=== PATIENT | male | born 1980 | race Caucasian/White ===

== ENCOUNTER 2023-11-02 09:13 | Emergency (ER) | payer OTHER ==
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
[2023-11-02] MEDS: KETOROLAC 15 MG/ML 1 ML VIAL IVP STA (09:39)
[2023-11-02] MEDS: SODIUM CHLORIDE 0.9% 1,000 ML IV STA (09:39)
[2023-11-02] MEDS: ACETAMINOPHEN TAB 500 MG TAB PO STA (09:40)
[2023-11-02] MEDS: LIDOCAINE 4% PATCH TOPICAL ONE (09:40)
[2023-11-02 10:02] LABS: Basophils % (A) 0 %; Eosinophils # (A) 0.1 k/uL (0-0.7); Eosinophils % (A) 1 %; HCT 41.4 % (39.0-53.0); HGB 13.7 gm/dL (13.0-17.5); Lymphocytes # (A) 0.8 k/uL (1.0-4.8); Lymphocytes % (A) 7 %; MCH 30.9 pg (25.0-35.0); MCV 93.6 fL (80.0-100.0); Mean Platelet Volume 7.1; Monocytes # (A) 0.9 k/uL (0-1.0); Monocytes % (A) 8 %; Neutrophils # (A) 9.5 k/uL (1.3-7.7); Neutrophils % (A) 84 %; Platelet Count 305 k/uL (150-450); RBC 4.42 m/uL (4.30-5.90); RDW 12.5 % (11.5-15.5); WBC 11.3 k/uL (3.8-10.6)
--- NOTE | 2023-11-02 10:02 | XR ---
EXAMINATION TYPE: XR chest 2V DATE OF EXAM: 11/02/2023 COMPARISON: NONE HISTORY: Chest pain TECHNIQUE: Frontal and lateral views of the chest are obtained. FINDINGS: Basilar increased density may reflect developing and pneumonia and/or associated atelectasis. Correla te clinically and progress studies recommended. No evidence for pneumothorax. No pleural effusion. The cardiac silhouette size is within normal limits. The osseous structures are grossly intact. IMPRESSION: 1. Basilar increased density may reflect developing and pneumonia and/or associated atelectasis. Cor relate clinically and progress studies recommended.
[2023-11-02 10:05] LABS: INR 0.9 (<1.2); Partial Thromboplastin Time 26.8 sec (22.0-30.0); Prothrombin Time 10.3 sec (10.0-12.5)
[2023-11-02] MEDS: ORPHENADRINE 30 MG/ML 2 ML VIAL IVP STA (10:13)
[2023-11-02] MEDS: BENZONATATE 100 MG CAP PO STA (10:13)
[2023-11-02 10:16] LABS: ALT 15 U/L (4-49); AST 19 U/L (17-59); African American GFR (CKD) >90 (>60 ml/min/1.73 sqM); Albumin 3.9 g/dL (3.5-5.0); Alkaline Phosphatase 98 U/L (38-126); Anion Gap 5 mmol/L; Blood Urea Nitrogen 18 mg/dL (9-20); Calcium 9.5 mg/dL (8.4-10.2); Carbon Dioxide 25 mmol/L (22-30); Chloride 107 mmol/L (98-107); Glucose 113 mg/dL (74-99); Magnesium 2.1 mg/dL (1.6-2.3); Non-African American GFR(CKD) >90 (>60 ml/min/1.73 sqM); Potassium 4.2 mmol/L (3.5-5.1); Sodium 137 mmol/L (137-145); Total Bilirubin 0.8 mg/dL (0.2-1.3); Total Protein 6.5 g/dL (6.3-8.2)
--- NOTE | 2023-11-02 11:03 | US ---
EXAMINATION TYPE: US gallbladder DATE OF EXAM: 11/02/2023 COMPARISON: NONE CLINICAL INDICATION: Male, 43 years old with history of RUQ pain; Pain TECHNIQUE: Multiple sonographic images of the right upper quadrant are obtained. FINDINGS: EXAM MEASUREMENTS: Liver Length: 15.3 cm Gallbladder Wall: .3 cm CBD: .4 cm Right Kidney: 9.2 x 4.8 x 4.5 cm BLENDING SUPERVISOR NOTES: Pancreas: Obscured by bowel gas Liver: Increased attenuation Gallbladder: Contracted no stones seen Evidence for sonographic Honeycutt's sign: no CBD: wnl Right Kidney: No hydronephrosis or masses seen IMPRESSION: Limited study given the contracted state of the gallbladder. No obvious cholelithiasis.
[2023-11-02] MEDS: cefTRIAXone IN SWFI 1,000 MG/10 ML SYRINGE IVP STA (11:37)
[2023-11-02] MEDS: AZITHROMYCIN 500 MG TAB PO STA (11:37)
[2023-11-02] MEDS: DEXAMETHASONE SOD PHOSPHATE 10 MG/ML 1 ML VIAL IVP STA (11:41)
[2023-11-02 12:28] VITALS: BP 110/74; PULSE 83; RESP 18
[2023-11-02 12:29] VITALS: TEMP 98.4
== END 2023-11-02 11:46 | disposition home or self-care (01) ==
LOC: EC 09:13 → SUPCPDRO 09:13 → EC 11:46
DX: J18.9 Pneumonia, unspecified organism (principal); F17.200 Nicotine dependence, unspecified, uncomplicated; Z91.030 Bee allergy status; Z88.8 Allergy status to other drugs, medicaments and biological substances
CPT/HCPCS: 99285; 96374; 96375 ×3; 96361; 36415; 93005; 85379; 80053; 83605; 83735; 84484; 85025; 85610; 85730; 71046; 76705; 99406; J1100; J2360; J0696; J1885

== ENCOUNTER 2024-10-16 13:20 | Inpatient (IN) | payer MEDICAID, OTHER ==
[2024-10-16] MEDS ORDERED: LORazepam 1 MG TAB PO PRN (13:30)
[2024-10-16] MEDS ORDERED: MAGNESIUM HYDROXIDE 2,400 MG/30 ML CUP PO PRN (13:30)
[2024-10-16] MEDS ORDERED: MAG HYDROX/AL HYDROX/SIMETH 355 ML BOTTLE PO PRN (13:30)
[2024-10-16] MEDS ORDERED: LORazepam 2 MG/ML INJ IM PRN (13:32)
[2024-10-16] MEDS ORDERED: HALOPERIDOL LACTATE 5 MG/ML 1 ML VIAL IM PRN (13:32)
[2024-10-16] MEDS ORDERED: haloperidoL 5 MG TAB PO PRN (13:32)
[2024-10-16] MEDS: QUEtiapine 100 MG TAB PO SCH (20:51)
[2024-10-16] MEDS: LORazepam 1 MG TAB PO PRN (20:52)
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
[2024-10-16 22:12] LABS: Basophils # (A) 0.02 10*3/uL (0.00-0.10); Basophils % (A) 0.4 %; Eosinophils # (A) 0.18 10*3/uL (0.04-0.35); Eosinophils % (A) 3.3 %; HCT 39.8 % (39.6-50.0); HGB 13.2 g/dL (13.0-17.0); Lymphocytes # (A) 1.33 10*3/uL (0.90-5.00); Lymphocytes % (A) 24.1 %; MCHC 33.2 g/dL (32.0-37.0); MCV 93.4 fL (80.0-97.0); Mean Platelet Volume 9.6 fL (9.5-12.2); Monocytes # (A) 0.39 10*3/uL (0.20-1.00); Monocytes % (A) 7.1 %; Neutrophils # (A) 3.58 10*3/uL (1.80-7.70); Neutrophils % (A) 64.9 %; Platelet Count 253 10*3/uL (140-440); RBC 4.26 10*6/uL (4.40-5.60); RDW 12.7 % (11.5-14.5); WBC 5.51 10*3/uL (4.50-10.00)
[2024-10-16 22:26] LABS: African American GFR (CKD) >90 (>60 ml/min/1.73 sqM); Anion Gap 8 mmol/L; Blood Urea Nitrogen 17 mg/dL (9-20); Carbon Dioxide 24 mmol/L (22-30); Chloride 103 mmol/L (98-107); Glucose 132 mg/dL (74-99); Non-African American GFR(CKD) >90 (>60 ml/min/1.73 sqM); Potassium 3.9 mmol/L (3.5-5.1); Sodium 135 mmol/L (137-145)
[2024-10-17] MEDS: FOLIC ACID 1 MG TAB PO SCH (09:48)
[2024-10-17] MEDS: MULTIVITAMINS, THERA 1 EACH TAB PO SCH (09:49)
[2024-10-17] MEDS: NICOTINE 14MG/24HR PATCH TRANSDERM SCH (09:49)
[2024-10-17] MEDS: THIAMINE 100 MG TAB PO SCH (09:49)
[2024-10-17 10:29] LABS: Chol/HDL Ratio 3.66 Ratio; LDL Cholesterol,Calculated 87.5 mg/dL (0.0-131.0)
[2024-10-17] MEDS: LORazepam 1 MG TAB PO PRN (12:14)
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
[2024-10-17] MEDS: ARIPiprazole 5 MG TAB PO SCH (15:36)
[2024-10-17] MEDS: chlordiazePOXIDE 25 MG CAP PO SCH (16:31)
[2024-10-17] MEDS: MIRTAZAPINE 15 MG TAB PO SCH (21:06)
[2024-10-18] MEDS: IBUPROFEN 600 MG TAB PO PRN (08:27)
[2024-10-18] MEDS: NICOTINE GUM (POLACRILEX) 2 MG GUM BUCCAL PRN (08:27)
--- NOTE | 2024-10-18 11:49 | P.PN ---
Progress Note - Text Progress Note Date: 10/18/24 Interval History: Patient was seen today for psychiatric follow-up. Patient was laying in his b ed, continues to be disheveled in appearance. States that he is still feeling "the same". Claims that he is still having depression and anxiety, claims that he is still also having suicidal thoughts no specific plan. States that he did not sleep well last night, has been tolerating medications fairly well has been mainly isolating in his room today. He did not report any other concerns at this time. At this time he is denying any auditory or visual hallucinations denying any homicidal ideations intent or plan. Anxiety still having minor withdrawal symptoms at this time. MENTAL STATUS EXAM: General Appearance: Patient appears to be disheveled appearance, balding, stated age is alert, directable, and attempts to cooperate. Patient appears to have poor hygiene and grooming. Behavior: Patient is seated without any agitated behavior. Attempts to cooperate Speech: Patient's speech is fluent and nonpressured. Fairly concrete, improving mildly Mood/Affect: Patient reports their mood is depressed and anxious, affect is congruent and constricted. Suicidality/Homicidality: Patient denies having any homicidal ideation intent or plan. Admits to suicidal thoughts, no specific plan or intent Perceptions: Patient denies any visual hallucinations and denies any auditory hallucinations Though content/process: There is no evidence of any delusional thought content and thought process is linear and goal-directed. Memory and concentration: AOX3, grossly intact for the purposes of this session Judgment and insight: Poor, improving mildly IMPRESSIONS: Bipolar disorder, current episode depressed History of PTSD Alcohol use disorder severe dependence Cocaine abuse Cannabis use disorder Nicotine dependence PLAN: -Patient is admitted under voluntary status to [facility] for stabilization of psychiatric symptoms and safety. Patient has signed adult voluntary form and has signed medication consent and is placed in patient's chart. -Medications : Increase Abilify 7.5 mg daily for mood stabilization, increase Remeron 30 mg nightly for sleep/mood, decrease/taper Librium, down to 20 mg 3 times daily for alcohol withdrawal, plan to taper down. added cymbalta 30 mg qhs for anxiety/mood. -Ativan and Haldol PRN for agitation/aggression -thiamine, MVM for etoh use -CIWA protocol with Ativan PRN for ETOH withdrawal. -NRT -nicotine patch -SW on board for discharge planning. Encourage patient to participate in groups to work on coping skills.
[2024-10-18] MEDS: DULoxetine HCL 30 MG CAPSULE.DR PO SCH (21:26)
[2024-10-18] MEDS: MIRTAZAPINE 15 MG TAB PO SCH (21:26)
[2024-10-19] MEDS: ARIPiprazole 5 MG TAB PO SCH (08:34)
--- NOTE | 2024-10-19 11:59 | P.PN ---
Progress Note - Text Progress Note Date: 10/19/24 Dictation was produced using [employer] dictation software. Please excuse any grammatical, word or spelling errors. Interval history: Patient was seen in his room and was directable and agreeable to speak with the publicity writer for psychiatric follow-up. The patient states that he is feeling about the same today, reported that his mood is " the same," admitted to moderate to high depression and anxiety which he rated both at 9 per 10. Reported that he still having suicidal thoughts at time and denied having any intention or plan while in the hospital however reported if he is outside he may walk into traffic. He denied any homicidal thoughts or behavior. He admitted to interrupted sleep last night and reported that he was tossing and turning. Admitted to good appetite. Denied any current AVH. States that his withdrawal symptoms has been improving. Reported that he has been compliant with his medication, denied any current side effects. Denied any muscle stiffness, rigidity, abnormal movement, or drooling. Patient was encouraged to attend groups and participate in milieu. Mental status exam: General Appearance: Patient appears to be disheveled appearance, balding, stated age is alert, directable, and attempts to cooperate. Patient appears to have fair hygiene and grooming, wheelchair at bedside. Behavior: Patient is laying in bed without any agitated behavior. Attempts to cooperate Speech: Patient's speech is fluent and nonpressured. Fairly concrete, improving mildly Mood/Affect: Patient reports their mood is " the same", depressed and anxious, affect is congruent and constricted. Suicidality/Homicidality: Patient denies having any homicidal ideation intent or plan. Admits to suicidal thoughts, no specific plan or intent Perceptions: Patient denies any visual hallucinations and denies any auditory hallucinations Though content/process: There is no evidence of any delusional thought content and thought process is linear and goal-directed. Memory and concentration: AOX3, grossly intact for the purposes of this session Judgment and insight: Poor, improving mildly IMPRESSIONS: Bipolar disorder, current episode depressed History of PTSD Alcohol use disorder severe dependence Cocaine abuse Cannabis use disorder Nicotine dependence Assessment/Plan: Continue with current diagnosis. Patient continues to meet criteria for inpatient psychiatric admission for symptom stabilization and safety. Patient will be maintained on current psychotropic medication regimen which include Abilify 7.5 mg p.o. daily, Remeron 30 mg p.o. at bedtime which was increased on Monday, Cymbalta 30 mg p.o. at bedtime which was started yesterday, and Librium for alcohol withdrawal with a plan to taper down. Monitor for medication compliance and for any psychotropic medication side effects. Will continue to monitor ongoing response to treatment. Encouraged participation in milieu.
--- NOTE | 2024-10-20 11:42 | P.PN ---
Progress Note - Text Progress Note Date: 10/20/24 Dictation was produced using [employer] dictation software. Please excuse any grammatical, word or spelling errors. Interval history: Patient was seen in his room, laying in bed and was directable and agreeable to speak with the real estate underwriter for psychiatric follow-up. The patient states that he is feeling " not that good" today, reported that he still feeling depressed, reported that he has been struggling with depression for quite some time, reported depression and anxiety to be at the moderate to high side, he rated both at 7 per 10. He admitted to having suicidal thoughts, denied any intention or plan while in the hospital however reported that he may consider walking into traffic or overdose if he is outside of the hospital. Denied any homicidal ideation. He denied any auditory or visual hallucination, paranoia or delusion. Admitted to having intermittent appetite and he has been forcing himself to eat. Admitted to good sleep. States that he is feeling safe while in the unit. Getting along with everyone. Reported that he has been taking his medication, denied any side effects, denied any muscle stiffness, rigidity, abnormal movement, or drooling. He states that he was having diarrhea yesterday, 34 times, patient was asked to let staff know if it is increasing in intensity. Patient was encouraged to take care of his hygiene and to shower, he reported that he showered yesterday. Patient was encouraged to attend groups and participate in milieu. Patient reported that he has good family support from his mother, sister and girlfriend, reported that he has been seeing a therapist. Patient was educated on the depression process and the effect of substance on depression, he seemed to understand. Mental status exam: General Appearance: Patient appears to be disheveled appearance, balding, stated age is alert, directable, and attempts to cooperate. Patient appears to have fair hygiene and grooming, wheelchair at bedside. Behavior: Patient is laying in bed without any agitated behavior. Attempts to cooperate Speech: Patient's speech is fluent and nonpressured. Fairly concrete, improving mildly Mood/Affect: Patient reports their mood is " not that good", depressed and anxious, affect is congruent and constricted. Suicidality/Homicidality: Patient denies having any homicidal ideation intent or plan. Admits to suicidal thoughts, no specific plan or intent while in the hospital Perceptions: Patient denies any visual hallucinations and denies any auditory hallucinations Though content/process: There is no evidence of any delusional thought content and thought process is linear and goal-directed. Memory and concentration: AOX3, grossly intact for the purposes of this session Judgment and insight: Poor, improving mildly IMPRESSIONS: Bipolar disorder, current episode depressed History of PTSD Alcohol use disorder severe dependence Cocaine abuse Cannabis use disorder Nicotine dependence Assessment/Plan: Continue with current diagnosis. Patient continues to meet criteria for inpatient psychiatric admission for symptom stabilization and safety. Patient will be maintained on current psychotropic medication regimen which include Abilify 7.5 mg p.o. daily, Remeron 30 mg p.o. at bedtime which was increased on Monday, Cymbalta 30 mg p.o. at bedtime which was started Monday, and Librium for alcohol withdrawal with a plan to taper down. Monitor for medication compliance and for any psychotropic medication side effects. Will continue to monitor ongoing response to treatment. Supportive/motivational psychotherapy was provided, encouraged participation in milieu.
--- NOTE | 2024-10-21 10:28 | P.PN ---
Progress Note - Text Progress Note Date: 10/21/24 Interval History: Patient was seen today for psychiatric follow-up. Patient was laying in his b ed. Patient claims that he is still feeling fairly depressed, claims that he did not have a good weekend. States that he is still having thoughts of "ending my life" however has no specific plan in the hospital. He claims that his anxiety is still a bit elevated. He denies any issues with his medications at this time, we spoke about adjusting them. He claims that his withdrawal symptoms have been improving, continues to believe he does not need rehab. Claims that he slept fairly last night. Has been eating, mainly isolating in his room not going to groups. At this time he is denying any auditory or visual hallucinations denying any homicidal ideations intent or plan. MENTAL STATUS EXAM: General Appearance: Patient appears to be disheveled appearance, balding, stated age is alert, directable, and attempts to cooperate. Patient appears to have improving hygiene and grooming. Behavior: Patient is seated without any agitated behavior. Attempts to cooperate Speech: Patient's speech is fluent and nonpressured. Fairly concrete, improving mildly Mood/Affect: Patient reports their mood is depressed and anxious, affect is congruent and constricted. Improving mildly Suicidality/Homicidality: Patient denies having any homicidal ideation intent or plan. Admits to suicidal thoughts, no specific plan or intent Perceptions: Patient denies any visual hallucinations and denies any auditory hallucinations Though content/process: There is no evidence of any delusional thought content and thought process is linear and goal-directed. Memory and concentration: AOX3, grossly intact for the purposes of this session Judgment and insight: Poor, improving mildly IMPRESSIONS: Bipolar disorder, current episode depressed History of PTSD Alcohol use disorder severe dependence Cocaine abuse Cannabis use disorder Nicotine dependence PLAN: -Patient is admitted under voluntary status to [facility] for stabilization of psychiatric symptoms and safety. Patient has signed adult voluntary form and has signed medication consent and is placed in patient's chart. -Medications : Increase Abilify 10 mg daily for mood stabilization, Remeron 30 mg nightly for sleep/mood, decrease/taper Librium, down to 10 mg 2 times daily for alcohol withdrawal, plan to taper off tomorrow am. increase cymbalta 30 mg bid for anxiety/mood. -Ativan and Haldol PRN for agitation/aggression -thiamine, MVM for etoh use -CIWA protocol with Ativan PRN for ETOH withdrawal. d/c tomorrow -NRT -nicotine patch -SW on board for discharge planning. Encourage patient to participate in groups to work on coping skills. refusing rehab at this time
[2024-10-21] MEDS: ARIPiprazole 5 MG TAB PO ONE (10:58)
[2024-10-21] MEDS: DULoxetine HCL 30 MG CAPSULE.DR PO SCH (10:58)
[2024-10-22] MEDS: ARIPiprazole 10 MG TAB PO SCH (08:36)
--- NOTE | 2024-10-22 11:50 | P.PN ---
Progress Note - Text Progress Note Date: 10/22/24 Interval History: Patient was seen today for psychiatric follow-up. Patient was laying in his b ed. Patient claims that he is feeling a bit better since yesterday. Claims that he is still dealing with anxiety however. Has been trying to go to some groups and interact with others. States that he feels the medications have been helping a bit so far not reporting any side effects. He was agreeable to have them increased once again. States that he is still having suicidal thoughts on and off during the day, no specific plan. Has been showering and eating well. Claims that he slept fairly last night. At this time he is denying any auditory or visual hallucinations denying any homicidal ideations intent or plan. MENTAL STATUS EXAM: General Appearance: Patient appears to be disheveled appearance, balding, stated age is alert, directable, and attempts to cooperate. Patient appears to have improving hygiene and grooming. Behavior: Patient is seated without any agitated behavior. Attempts to cooperate Speech: Patient's speech is fluent and nonpressured. Fairly concrete, improving mildly Mood/Affect: Patient reports their mood is depressed and anxious, improving mildly, affect is congruent and constricted. Improving mildly Suicidality/Homicidality: Patient denies having any homicidal ideation intent or plan. Admits to suicidal thoughts, no specific plan or intent, improving mildly Perceptions: Patient denies any visual hallucinations and denies any auditory hallucinations Though content/process: There is no evidence of any delusional thought content and thought process is linear and goal-directed. Memory and concentration: AOX3, grossly intact for the purposes of this session Judgment and insight: Poor, improving mildly IMPRESSIONS: Bipolar disorder, current episode depressed History of PTSD Alcohol use disorder severe dependence Cocaine abuse Cannabis use disorder Nicotine dependence PLAN: -Patient is admitted under voluntary status to [facility] for stabilization of psychiatric symptoms and safety. Patient has signed adult voluntary form and has signed medication consent and is placed in patient's chart. -Medications : Abilify 10 mg daily for mood stabilization, Remeron 30 mg nightly for sleep/mood, d/c Librium. increase cymbalta 30 mg daily + 60 mg qhs for anxiety/mood. -Ativan and Haldol PRN for agitation/aggression -thiamine, MVM for etoh use -CIWA protocol with Ativan d/c today -NRT -nicotine patch -SW on board for discharge planning. Encourage patient to participate in groups to work on coping skills. refusing rehab at this time. hopeful for discharge by the end of the week if patient is improving psychiatrically.
[2024-10-22] MEDS: DULoxetine HCL 60 MG CAPSULE.DR PO SCH (20:52)
[2024-10-23] MEDS: DULoxetine HCL 30 MG CAPSULE.DR PO SCH (08:45)
--- NOTE | 2024-10-23 10:54 | P.PN ---
Progress Note - Text Progress Note Date: 10/23/24 Interval History: Patient was seen today for psychiatric follow-up. Patient was laying in his b ed. Patient claims that he feels "about the same" with regards to his mood and anxiety. Claims that he still struggling with depression. Believes that he is still having on and off suicidal thoughts, no specific plan. He does claim that the medications have been helping "just a little bit". He continues to mainly isolate in his room, has been up for meals only going to limited groups. Claims that he slept fairly last night. At this time he is denying any auditory or visual hallucinations denying any homicidal ideations intent or plan. MENTAL STATUS EXAM: General Appearance: Patient appears to be disheveled appearance, balding, stated age is alert, directable, and attempts to cooperate. Patient appears to have improving hygiene and grooming. Behavior: Patient is seated without any agitated behavior. Attempts to cooperate, mainly isolate if Speech: Patient's speech is fluent and nonpressured. Fairly concrete, improving mildly Mood/Affect: Patient reports their mood is depressed and anxious, improving mildly, affect is congruent and constricted. Improving mildly Suicidality/Homicidality: Patient denies having any homicidal ideation intent or plan. Admits to suicidal thoughts, no specific plan or intent, improving mildly Perceptions: Patient denies any visual hallucinations and denies any auditory hallucinations Though content/process: There is no evidence of any delusional thought content and thought process is linear and goal-directed. Fairly concrete Memory and concentration: AOX3, grossly intact for the purposes of this session Judgment and insight: Poor, improving mildly IMPRESSIONS: Bipolar disorder, current episode depressed History of PTSD Alcohol use disorder severe dependence Cocaine abuse Cannabis use disorder Nicotine dependence PLAN: -Patient is admitted under voluntary status to [facility] for stabilization of psychiatric symptoms and safety. Patient has signed adult voluntary form and has signed medication consent and is placed in patient's chart. -Medications : Abilify 10 mg daily for mood stabilization, Remeron 30 mg nightly for sleep/mood, increase cymbalta 60 mg daily + 60 mg qhs for anxiety/mood. -Ativan and Haldol PRN for agitation/aggression -thiamine, MVM for etoh use -NRT -nicotine patch -SW on board for discharge planning. Encourage patient to participate in groups to work on coping skills. refusing rehab at this time. hopeful for discharge by the end of the week if patient is improving psychiatrically.
[2024-10-24] MEDS: DULoxetine HCL 60 MG CAPSULE.DR PO SCH (08:34)
--- NOTE | 2024-10-24 10:27 | P.PN ---
Progress Note - Text Progress Note Date: 10/24/24 Interval History: Patient was seen today for psychiatric follow-up. Patient was laying in his b ed. Patient claims that he is doing a bit better today. Claims that his medications have been helping improve his mood. States that he is still dealing with depression, would like to have his medications increased once again. He states that he was able to sleep better last night. Claims that he did feel anxious this morning due to the disruption in the hallway. States that he feels he is not ready for discharge yet, possibly tomorrow. Claims that he has been attempting to eat more, continues to mainly isolate in his room was encouraged to go to groups today. He was also encouraged to shower today as well. Appears to have mild improvement in his affect today. At this time he is denying any auditory or visual hallucinations denying any homicidal ideations intent or plan and denying any suicidal ideations today. MENTAL STATUS EXAM: General Appearance: Patient appears to be disheveled appearance, balding, stated age is alert, directable, and attempts to cooperate. Patient appears to have improving hygiene and grooming. Behavior: Patient is seated without any agitated behavior. Attempts to cooperate, mainly isolative, improving mildly. Speech: Patient's speech is fluent and nonpressured. Fairly concrete, improving mildly Mood/Affect: Patient reports their mood is improving mildly, affect is congruent and constricted. Improving mildly Suicidality/Homicidality: Patient denies having any homicidal ideation intent or plan. Denies any suicidal thoughts, no specific plan or intent Perceptions: Patient denies any visual hallucinations and denies any auditory hallucinations Though content/process: There is no evidence of any delusional thought content and thought process is linear and goal-directed. Fairly concrete, improving mildly Memory and concentration: AOX3, grossly intact for the purposes of this session Judgment and insight: Poor, improving mildly IMPRESSIONS: Bipolar disorder, current episode depressed History of PTSD Alcohol use disorder severe dependence Cocaine abuse Cannabis use disorder Nicotine dependence PLAN: -Patient is admitted under voluntary status to [facility] for stabilization of psychiatric symptoms and safety. Patient has signed adult voluntary form and has signed medication consent and is placed in patient's chart. -Medications : Abilify 10 mg daily for mood stabilization, increase Remeron 45 mg nightly for sleep/mood, cymbalta 60 mg daily + 60 mg qhs for anxiety/mood. -Ativan and Haldol PRN for agitation/aggression -thiamine, MVM for etoh use -NRT -nicotine patch -SW on board for discharge planning. Encourage patient to participate in groups to work on coping skills. refusing rehab at this time. hopeful for discharge tomorrow back home if patient is improving psychiatrically.
[2024-10-24] MEDS: MIRTAZAPINE 45 MG TABLET PO SCH (20:46)
--- NOTE | 2024-10-25 11:06 | P.PN ---
Progress Note - Text Progress Note Date: 10/25/24 Interval History: Patient was seen today for psychiatric follow-up. Patient was laying in his bed once again. Patient claims that he is not doing well today, claims that he is still feeling depressed and also was endorsing suicidal thoughts. He claims that he had "several ideas" to harm himself if he was discharged today claims that he is not feeling safe. He also is endorsing some anxiety at this time. Denies any issues with his medications. Claims that he did not sleep well last night. Was agreeable to try lithium today. Has not been going to groups mainly isolating in his room. At this time he is denying any auditory or visual hallucinations denying any homicidal ideations intent or plan and denying any suicidal ideations today. MENTAL STATUS EXAM: General Appearance: Patient appears to be disheveled appearance, balding, stated age is alert, directable, and attempts to cooperate. Patient appears to have improving hygiene and grooming. Behavior: Patient is seated without any agitated behavior. Attempts to cooperate, somewhat manipulative. mainly isolative Speech: Patient's speech is fluent and nonpressured. Fairly concrete Mood/Affect: Patient reports their mood is depressed, affect is congruent and constricted. Improving mildly Suicidality/Homicidality: Patient denies having any homicidal ideation intent or plan. admitts to having suicidal thoughts, no specific plan while on the unit or intent Perceptions: Patient denies any visual hallucinations and denies any auditory hallucinations Though content/process: There is no evidence of any delusional thought content and thought process is linear and goal-directed. Fairly concrete Memory and concentration: AOX3, grossly intact for the purposes of this session Judgment and insight: Poor, improving mildly IMPRESSIONS: Bipolar disorder, current episode depressed History of PTSD Alcohol use disorder severe dependence Cocaine abuse Cannabis use disorder Nicotine dependence PLAN: -Patient is admitted under voluntary status to [facility] for stabilization of psychiatric symptoms and safety. Patient has signed adult voluntary form and has signed medication consent and is placed in patient's chart. -Medications : Abilify 10 mg daily for mood stabilization, Remeron 45 mg nightly for sleep/mood, cymbalta 60 mg daily + 60 mg qhs for anxiety/mood. added lithium 150 mg bid for mood stabilization/suicidal thoughts. -Ativan and Haldol PRN for agitation/aggression -thiamine, MVM for etoh use -NRT -nicotine patch -SW on board for discharge planning. Encourage patient to participate in groups to work on coping skills. refusing rehab at this time. hopeful for monday back home if patient is improving psychiatrically.
[2024-10-25] MEDS: ARIPiprazole 5 MG TAB PO ONE (11:28)
[2024-10-25] MEDS: LITHIUM CARBONATE 150 MG CAP PO SCH (11:28)
[2024-10-26] MEDS: ARIPiprazole 15 MG TAB PO SCH (10:24)
--- NOTE | 2024-10-26 12:22 | P.PN ---
Subjective Progress Note Date: 10/26/24 Principal diagnosis: Bipolar I Depressed Patient was seen today for psychiatric follow-up. Patient was laying in his bed. He says that he is to be discharged on Monday and feels that he will do OK. Although he also is endorsing some anxiety at this time. Denies any issues with his medications. Claims that he did sleep well last night. Was agreeable to try lithium today. Has not been going to groups mainly isolating in his room. At this time he is denying any auditory or visual hallucinations denying any homicidal ideations intent or plan and denying any suicidal ideations today. He says that his bowels are somewhat loose. MENTAL STATUS EXAM: General Appearance: Patient appears to be disheveled appearance, balding, stated age is alert, directable, and attempts to cooperate. Patient appears to have adequate hygiene and grooming. Behavior: Patient is seated without any agitated behavior. Attempts to cooperate, mainly isolative Speech: Patient's speech is fluent and nonpressured. Mood/Affect: Patient reports their mood is depressed, affect is congruent and constricted. Suicidality/Homicidality: Patient denies having any homicidal ideation intent or plan. Je suicidal thoughtstoday, no specific plan while on the unit or intent Perceptions: Patient denies any visual hallucinations and denies any auditory hallucinations Though content/process: There is no evidence of any delusional thought content and thought process is linear and goal-directed. Fairly concrete Memory and concentration: AOX3, grossly intact for the purposes of this session Judgment and insight: Poor, improving mildly IMPRESSIONS: Bipolar disorder, current episode depressed History of PTSD Alcohol use disorder severe dependence Cocaine abuse Cannabis use disorder Nicotine dependence PLAN: -Patient is admitted under voluntary status to MHU for stabilization of psyc hiatric symptoms and safety. Patient has signed adult voluntary form and has signed medication consent and is placed in patient's chart. -Medications : Abilify 10 mg daily for mood stabilization, Remeron 45 mg nightly for sleep/mood, cymbalta 60 mg daily + 60 mg qhs for anxiety/mood. added lithium 150 mg bid for mood stabilization/suicidal thoughts. -Ativan and Haldol PRN for agitation/aggression -thiamine, MVM for etoh use -NRT -nicotine patch -SW on board for discharge planning. Encourage patient to participate in groups to work on coping skills. refusing rehab at this time. hopeful for monday back home if patient is improving psychiatrically. Objective - Vital Signs Vital signs: Vital Signs Temp 97.8 F 10/26/24 09:56 Pulse 102 H 10/26/24 09:56 Resp 16 10/26/24 09:56 BP 111/75 10/26/24 09:56 Pulse Ox 95 10/26/24 09:56 FiO2 - Labs CBC & Chem 7: 10/16/24 21:59 10/16/24 21:59
--- NOTE | 2024-10-27 11:55 | P.PN ---
Subjective Progress Note Date: 10/27/24 Principal diagnosis: Bipolar I Depressed Patient was seen today for psychiatric follow-up. Patient was laying in his bed but was willing to talk to me set up on his elbow to look at me and said that his depression is much better on the medicine and that he has learned his lesson and he needs to take it. He says that he is to be discharged on Monday and feels that he will do OK. He says his anxiety is largely cleared. Denies any issues with his medications. Claims that he did not sleep well last night. He has been out of his room more today. At this time he is denying any auditory or visual hallucinations denying any homicidal ideations intent or plan and denying any suicidal ideations today. H MENTAL STATUS EXAM: He was cooperative good eye contact reasonable response times General Appearance: Patient appears to be disheveled appearance, balding, stated age is alert, directable, and attempts to cooperate. Patient appears to have adequate hygiene and grooming. Behavior: Patient is seated without any agitated behavior. Attempts to cooperate, mainly isolative Speech: Patient's speech is fluent and nonpressured. Mood/Affect: Patient reports their mood is depressed, affect is congruent and constricted. Suicidality/Homicidality: Patient denies having any homicidal ideation intent or plan. Je suicidal thoughtstoday, no specific plan while on the unit or intent Perceptions: Patient denies any visual hallucinations and denies any auditory hallucinations Though content/process: There is no evidence of any delusional thought content and thought process is linear and goal-directed. Fairly concrete Memory and concentration: AOX3, grossly intact for the purposes of this session Judgment and insight: Poor, improving mildly IMPRESSIONS: Doing better Bipolar disorder, current episode depressed History of PTSD Alcohol use disorder severe dependence Cocaine abuse Cannabis use disorder Nicotine dependence PLAN: -Patient is admitted under voluntary status to MHU for stabilization of psychiatric symptoms and safety. Patient has signed adult voluntary form and has signed medication consent and is placed in patient's chart. -Medications : Abilify 10 mg daily for mood stabilization, Remeron 45 mg nightly for sleep/mood, cymbalta 60 mg daily + 60 mg qhs for anxiety/mood. added lithium 150 mg bid for mood stabilization/suicidal thoughts. -Ativan and Haldol PRN for agitation/aggression -thiamine, MVM for etoh use -NRT -nicotine patch -SW on board for discharge planning. Encourage patient to participate in groups to work on coping skills. refusing rehab at this time. hopeful for monday back home if patient is improving psychiatrically. Objective - Vital Signs Vital signs: Vital Signs Temp 97.4 F L 10/27/24 09:00 Pulse 111 H 10/27/24 09:00 Resp 16 10/27/24 09:00 BP 115/76 10/27/24 09:00 Pulse Ox 95 10/27/24 09:00 FiO2 - Labs CBC & Chem 7: 10/16/24 21:59 10/16/24 21:59
[2024-10-28 08:55] VITALS: BP 120/77; PULSE 75; RESP 16; TEMP 98.3
--- NOTE | 2024-10-28 11:17 | P.DS ---
Providers Date of admission: 10/16/24 18:48 Expected date of discharge: 10/28/24 Attending physician: Orville Lyman MD Consults: 10/16/24 13:30 Consult Physician Routine Consulting Provider: [facility] Consult Reason/Comments: H&P Do you want consulting provider notified?: Yes Primary care physician: Gene Medina - Discharge Diagnosis(es) (1) Bipolar disorder current episode depressed Current Visit: Yes Status: Acute Priority: High (2) History of posttraumatic stress disorder (PTSD) Current Visit: Yes Status: Acute Priority: Medium (3) Alcohol use disorder, severe, dependence Current Visit: Yes Status: Acute Priority: High (4) Cocaine abuse Current Visit: Yes Status: Acute Priority: High (5) Cannabis use disorder Current Visit: Yes Status: Acute Priority: Medium (6) Nicotine dependence Current Visit: Yes Status: Acute Priority: Low Hospital Course: Admission HPI: Admission note was completed by service writer advisor "Patient is a 44-year-old male, currently lives with his mother in a house, he is he has no kids, collect Social Security disability. Patient presented to the hospital as a transfer from [facility] and as per eps note "Pt is a transfer from [facility]. Pt reported SI with plan to jump into traffic. Pt expressed multiple life stressors, including limited finances. Pt has a hx of suicide attempts. Attempt in 10/2023 by Overdose per charting. Pt denies HI, Hallucinations, or delusions. Polysubstance user, UDS + cocaine. Daily ETOH use, recent increase to a case and a fifth in the last few days per [facility] [employer]. ETOH on arrival was .149. Recent CIWA 6. No hx od WD seizures. VSS, Covid 10/16/24 Negative. No restraints. PRNs for WD symptoms. Pet and cert completed." patient was seen today and agreeable to speak to service writer advisor for evaluation. Patient claims that he has been not feeling doing well lately, claims that he has been off his medication since June. States that he was doing well and believes that he did not need them any longer. He claims that he was feeling depressed mainly, was endorsing suicidal ideations. Claims that this been going on for the past couple of months. He states that he was having thoughts of walking into traffic, claims that he called his mother and then he called 911 on himself. He was a transfer from [facility]. He claims that he is stressed about finances as he is no longer working. Is endorsing anxiety, claims that he has a history of PTSD also history of bipolar disorder, is claiming that he has history of possible manic episodes. Claims that he is still having suicidal thoughts no specific plan, denies any homicidal ideations. At this time patient denies any auditory or visual hallucinations. Patient denies any flight of ideas racing thoughts and increased in goal directed behavior. Patient claims that his sleep is poor appetite is fair. Claims that he is also drinking alcohol regularly about a 24 pack of beer along with some alcohol liquor per day . Claims that he does have a history of severe withdrawals in the past, currently endorsing mild shakes. Patient admits to using marijuana as well and cigarettes daily. Claims that he occasionally uses cocaine." Hospital course: Upon admission to the unit patient was directable and agreeable to commence treatment and signed adult voluntary form. Patient was initially depressed isolative suicidal however with time and treatment patient got along well with other patients on the unit and followed unit protocol. Patient was compliant with the medications and denied any side effects throughout hospital course. Patient was started on Abilify increased to dose of 15 mg daily for mood stabilization, Remeron 45 milligrams nightly for sleep/mood, Cymbalta 60 mg twice daily for anxiety/mood, lithium 150 mg twice daily for mood stabilization/suicidal thoughts. Patient was on CIWA protocol with as needed Ativan for alcohol withdrawal. Patient spoke of his stressors however did not participate much in group/activity therapy and mainly kept to themselves during hospitalization. Patient was also seen by medical team for history and physical exam. Throughout the course of the hospitalization patient gradually improved with regards to mood, anxiety, suicidal thoughts, sleep and returned back to their baseline level of functioning. On the day of discharge patient denied any suicidal or homicidal ideations intent or plan denied any auditory or visual hallucinations. Patient endorsed wanting to live for their health and family. The patient denied any access to guns or weapons. Patient denied any paranoia and did not endorse any delusions. Patient does have a significant history of substance abuse and was counseled on abstaining from all substances including alcohol and marijuana. Patient was offered however declined inpatient substance-abuse rehab. Patient elected to do outpatient substance use treatment program through their outpatient provider. Patient was also counseled on the medications and need for regular compliance and was encouraged to follow-up with their outpatient appointment for mental health and also for primary care. Mental status exam: General Appearance: Patient appears to be balding, using a walker, stated age is alert, pleasant, and cooperative. Patient is in no acute distress and has improved hygiene and grooming Behavior: Patient is calmly seated without any agitated behavior. Speech: Patient's speech is fluent and nonpressured. Mood/Affect: Patient reports their mood is "better", affect is congruent and euthymic. Suicidality/Homicidality: Patient denies having any suicidal or homicidal ideation intent or plan. Perceptions: Patient denies any auditory or visual hallucinations. Though content/process: There is no evidence of any delusional thought content and thought process is linear and goal-directed. More future oriented Memory and concentration: AOX3, grossly intact for the purposes of this session. Can spell "WORLD" backwards correctly. Judgment and insight: Chronically poor, however has improved with guarded prognosis Impression: Bipolar disorder current episode depressed History of PTSD Alcohol use disorder severe dependence Cocaine abuse Cannabis use disorder Nicotine dependence Plan: -Continue with discharge today as patient has improved and stabilized psychiatrically and is not currently an imminent threat to themself and/or others. Patient will remain at chronically elevated risk for harm to self and/or others due to their impulsivity and substance abuse. -Continue medications: Abilify 15 mg daily for mood stabilization, Remeron 45 mg nightly for sleep/mood, Cymbalta 60 mg twice daily for anxiety/mood, lithium 150 mg twice daily for mood stabilization/suicidal thoughts -Patient was counseled on the need for medication compliance and appropriate follow-up at mental health and also primary care for medical issues. Patient verbalized understanding and agreed. -Social work to help coordinate patients discharge today. also to ensure safe home environment that guns/weapons are either removed from the home or locked away. Social work also to arrange for patients follow up appointments with [facility] for psychiatric care along with follow up with primary care provider. -Patient counseled on abstaining from recreational drugs and marijuana and alcohol. Was informed/educated on the adverse effects on their physical and mental health. Patient verbally agreed and understood. Patient was offered substance abuse treatment however declined at this time. -Patient was instructed to return to the hospital or seek immediate medical care if their psychiatric or medical symptoms do worsen or reoccur. Allergies Allergy/AdvReac Type Severity Reaction Status Date / Time acetaminophen [From Tylenol] Allergy Rash/Hives Verified 11/02/23 10:47 bee venom protein (honey bee) Allergy Unknown Verified 11/02/23 10:52 propoxyphene Allergy Rash/Hives Verified 11/02/23 10:47 [From Darvocet-N] Laboratory Results WBC 5.51 10*3/uL (4.50-10.00) 10/16/24 21:59 RBC 4.26 10*6/uL (4.40-5.60) L 10/16/24 21:59 Hgb 13.2 g/dL (13.0-17.0) 10/16/24 21:59 Hct 39.8 % (39.6-50.0) 10/16/24 21:59 MCV 93.4 fL (80.0-97.0) 10/16/24 21:59 MCH 31.0 pg (27.0-32.0) 10/16/24 21:59 MCHC 33.2 g/dL (32.0-37.0) 10/16/24 21:59 Plt Count 253 10*3/uL (140-440) 10/16/24 21:59 MPV 9.6 fL (9.5-12.2) 10/16/24 21:59 Immature Gran % (Auto) 0.2 % 10/16/24 21:59 Neutrophils % 64.9 % 10/16/24 21:59 Lymphocytes % 24.1 % 10/16/24 21:59 Monocytes % 7.1 % 10/16/24 21:59 Eosinophils % 3.3 % 10/16/24 21:59 Basophils % 0.4 % 10/16/24 21:59 Immature Gran # 0.01 10*3/uL (0.00-0.04) 10/16/24 21:59 Neutrophils # 3.58 10*3/uL (1.80-7.70) 10/16/24 21:59 Lymphocytes # 1.33 10*3/uL (0.90-5.00) 10/16/24 21:59 Monocytes # 0.39 10*3/uL (0.20-1.00) 10/16/24 21:59 Eosinophils # 0.18 10*3/uL (0.04-0.35) 10/16/24 21:59 Basophils # 0.02 10*3/uL (0.00-0.10) 10/16/24 21:59 Sodium 135 mmol/L (137-145) L 10/16/24 21:59 Potassium 3.9 mmol/L (3.5-5.1) 10/16/24 21:59 Chloride 103 mmol/L (98-107) 10/16/24 21:59 Carbon Dioxide 24 mmol/L (22-30) 10/16/24 21:59 Anion Gap 8 mmol/L 10/16/24 21:59 BUN 17 mg/dL (9-20) 10/16/24 21:59 Creatinine 0.86 mg/dL (0.66-1.25) 10/16/24 21:59 Est GFR (CKD-EPI)AfAm >90 (>60 ml/min/1.73 sqM) 10/16/24 21:59 Est GFR (CKD-EPI)NonAf >90 (>60 ml/min/1.73 sqM) 10/16/24 21:59 Glucose 132 mg/dL (74-99) H 10/16/24 21:[address] Glu mg/dL 94 mg/dL 10/16/24 21:59 Hemoglobin A1c 4.9 % (<=6.0) 10/16/24 21:59 Calcium 9.0 mg/dL (8.4-10.2) 10/16/24 21:59 Triglycerides 133.00 mg/dL (0.00-149.00) 10/16/24 21:59 Cholesterol 157.00 mg/dL (0.00-200.00) 10/16/24 21:59 LDL Cholesterol, Calc 87.5 mg/dL (0.0-131.0) 10/16/24 21:59 VLDL Cholesterol, Calc 26.60 mg/dL (5.00-40.00) 10/16/24 21:59 HDL Cholesterol 42.90 mg/dL (40.00-60.00) 10/16/24 21:59 Cholesterol/HDL Ratio 3.66 Ratio 10/16/24 21:59 TSH 1.740 mIU/L (0.465-4.680) 10/16/24 21:59 Vital Signs Temp 98.3 F 10/28/24 08:54 Pulse 75 10/28/24 08:54 Resp 16 10/28/24 08:54 BP 120/77 10/28/24 08:54 Pulse Ox 100 10/28/24 08:54 FiO2 Intake & Output 10/27/24 10/28/24 10/28/24 18:59 06:59 18:59 Weight 80.6 kg Patient Condition at Discharge: Stable Plan - Discharge Summary Discharge Rx Participant: No New Discharge Prescriptions: New DULoxetine HCL [Cymbalta] 60 mg PO BID 30 Days #60 cap Folic Acid 1 mg PO DAILY tab [place] Carbonate 150 mg PO BID 30 Days #60 cap Multivitamins, Thera [Multivitamin (formulary)] 1 each PO DAILY tab ARIPiprazole [Abilify] 15 mg PO DAILY 30 Days #30 tab Nicotine Gum (Polacrilex) [Nicorette] 2 mg BUCCAL Q4HR PRN 30 Days #180 pieceofgum PRN Reason: Nicotine Cravings Mirtazapine [Remeron] 45 mg PO HS 30 Days #30 tab Continue Thiamine [Vitamin B-1] 100 mg PO DAILY Multivitamins, Thera [Multivitamin (formulary)] 1 tab PO DAILY Ketorolac [Toradol] 10 mg PO Q6HR PRN #15 tab PRN Reason: Pain Discontinued Ibuprofen [Motrin Ib] 600 mg PO Q6H PRN PRN Reason: Fever And/ Or Pain Loperamide HCl [Imodium A-D] 4 mg PO QID PRN PRN Reason: Loose Stool Chlorpheniramine Maleate [Chlor-Trimeton] 4 mg PO Q4H PRN PRN Reason: Allergy Symptoms QUEtiapine [SEROquel] 100 mg PO HS Azithromycin [Zithromax] 250 mg PO DIRECTED 5 Days #6 tab Calcium/Magnesium/Zinc/Vitamin D 1 tab PO TID PRN PRN Reason: SUPPLEMENT ondansetron HCL [Ondansetron HCl] 8 mg PO Q6H PRN PRN Reason: Nausea And Vomiting Lidocaine 5% Patch [Lidoderm 5% Patch] 1 patch TOPICAL DAILY PRN #30 patch PRN Reason: Pain Discharge Medication List Ketorolac [Toradol] 10 mg PO Q6HR PRN #15 tab 11/02/23 [Rx] Multivitamins, Thera [Multivitamin (formulary)] 1 tab PO DAILY 11/02/23 [History] Thiamine [Vitamin B-1] 100 mg PO DAILY 11/02/23 [History] ARIPiprazole [Abilify] 15 mg PO DAILY 30 Days #30 tab 10/28/24 [Rx] DULoxetine HCL [Cymbalta] 60 mg PO BID 30 Days #60 cap 10/28/24 [Rx] Folic Acid 1 mg PO DAILY tab 10/28/24 [Rx] [place] Carbonate 150 mg PO BID 30 Days #60 cap 10/28/24 [Rx] Mirtazapine [Remeron] 45 mg PO HS 30 Days #30 tab 10/28/24 [Rx] Multivitamins, Thera [Multivitamin (formulary)] 1 each PO DAILY tab 10/28/24 [Rx] Nicotine Gum (Polacrilex) [Nicorette] 2 mg BUCCAL Q4HR PRN 30 Days #180 pieceofgum 10/28/24 [Rx] Follow up Appointment(s)/Referral(s): JAMES [facility] [Other] - 11/01/24 10:00 am (Intake on 11/01/24 @ 10:00 am w lei seller ) [facility] [Other] - 1 Week Patient Instructions/Handouts: How to Stop Smoking (DC), Depression (DC) Discharge Disposition: HOME SELF-CARE
== END 2024-10-28 13:49 | disposition home or self-care (01) | DRG 753 ==
LOC: 3MHU 18:48
PROVIDERS: ADMIT Psychiatry & Neurology Psychiatry; ATTEND Psychiatry & Neurology Psychiatry
DX: F31.30 Bipolar disorder, current episode depressed, mild or moderate severity, unspecified (principal); F41.9 Anxiety disorder, unspecified; F43.10 Post-traumatic stress disorder, unspecified; R45.851 Suicidal ideations; F17.210 Nicotine dependence, cigarettes, uncomplicated; F10.239 Alcohol dependence with withdrawal, unspecified; R19.7 Diarrhea, unspecified; F12.10 Cannabis abuse, uncomplicated; W13.2XXS Fall from, out of or through roof, sequela; F14.10 Cocaine abuse, uncomplicated; Z74.09 Other reduced mobility; Z79.899 Other long term (current) drug therapy; Z91.51 Personal history of suicidal behavior; Z28.310 Unvaccinated for COVID-19; Z28.21 Immunization not carried out because of patient refusal; Z71.41 Alcohol abuse counseling and surveillance of alcoholic; Z88.6 Allergy status to analgesic agent; Z88.5 Allergy status to narcotic agent; Z88.8 Allergy status to other drugs, medicaments and biological substances
CPT/HCPCS: 80048; 80061; 83036; 84443; 85025